=== PATIENT | female | born 1955 | race African-American/Black ===

== ENCOUNTER 2021-03-08 11:50 | Day surgery (SDC) | payer OTHER ==
[2021-03-04 14:54] VITALS: BMI 33.4
[2021-03-08] MEDS ORDERED: PROPOFOL 20 ML ONE ×3 (11:56)
[2021-03-08 12:12] VITALS: TEMP 97.8
[2021-03-08 13:33] VITALS: BP 124/93; PULSE 82
== END 2021-03-08 13:33 | disposition home or self-care (01) ==
LOC: FASU-ENDO 11:50
PROVIDERS: ATTEND Internal Medicine Gastroenterology
PROC: 0DBK8ZX Excision of Ascending Colon, Via Natural or Artificial Opening Endoscopic, Diagnostic (ICD-10-PCS; 2021-03-08)
PROC: 0DBH8ZX Excision of Cecum, Via Natural or Artificial Opening Endoscopic, Diagnostic (ICD-10-PCS; 2021-03-08)
PROC: 0DBN8ZX Excision of Sigmoid Colon, Via Natural or Artificial Opening Endoscopic, Diagnostic (ICD-10-PCS; principal; 2021-03-08 12:32)
DX: D12.5 Benign neoplasm of sigmoid colon (principal); K64.1 Second degree hemorrhoids; K57.30 Diverticulosis of large intestine without perforation or abscess without bleeding; R19.7 Diarrhea, unspecified